=== PATIENT | female | born 1945 | race Caucasian/White ===

== ENCOUNTER → 2017-06-21 | Outpatient (CLI) | payer MEDICARE | END | disposition home or self-care (01) | LOC: RAH 08:07 | PROVIDERS: ATTEND Internal Medicine | DX: Z12.31 Encounter for screening mammogram for malignant neoplasm of breast (principal) | CPT/HCPCS: 77067 ==

== ENCOUNTER → 2017-08-28 | Outpatient (CLI) | payer MEDICARE | LOC: OIH 10:51 | PROVIDERS: ATTEND Internal Medicine | DX: S93.601A Unspecified sprain of right foot, initial encounter (principal) | CPT/HCPCS: 73620 ==

== ENCOUNTER → 2019-03-01 | Outpatient (CLI) | payer MEDICARE | END | disposition home or self-care (01) | LOC: RAH 13:27 | PROVIDERS: ATTEND Orthopaedic Surgery | DX: M71.21 Synovial cyst of popliteal space [Baker], right knee (principal); M22.41 Chondromalacia patellae, right knee | CPT/HCPCS: 73721 ==

== ENCOUNTER → 2019-08-19 | Outpatient (CLI) | payer MEDICARE | END | disposition home or self-care (01) | LOC: RAH 08:06 | PROVIDERS: ATTEND Internal Medicine | DX: Z12.31 Encounter for screening mammogram for malignant neoplasm of breast (principal) | CPT/HCPCS: 77067 ==

== ENCOUNTER → 2020-10-05 | Outpatient (CLI) | payer MEDICARE | END | disposition home or self-care (01) | LOC: RAH 11:34 | PROVIDERS: ATTEND Internal Medicine | DX: Z12.31 Encounter for screening mammogram for malignant neoplasm of breast (principal) | CPT/HCPCS: 77067 ==

== ENCOUNTER → 2021-11-26 | Outpatient (CLI) | payer MEDICARE | END | disposition home or self-care (01) | LOC: RAH 11:49 | PROVIDERS: ATTEND Internal Medicine Hematology & Oncology | DX: C50.312 Malignant neoplasm of lower-inner quadrant of left female breast (principal) | CPT/HCPCS: 77066 ==

== ENCOUNTER → 2022-11-30 | Outpatient (CLI) | payer MEDICARE | END | disposition home or self-care (01) | LOC: RAH 08:26 | PROVIDERS: ATTEND Internal Medicine Hematology & Oncology | DX: C50.312 Malignant neoplasm of lower-inner quadrant of left female breast (principal); R92.2 Inconclusive mammogram; Z85.3 Personal history of malignant neoplasm of breast | CPT/HCPCS: 77066 ==

== ENCOUNTER → 2023-12-13 | Outpatient (CLI) | payer MEDICARE | END | disposition home or self-care (01) | LOC: RAH 09:54 | PROVIDERS: ATTEND Internal Medicine Hematology & Oncology | DX: C50.312 Malignant neoplasm of lower-inner quadrant of left female breast (principal); R92.333 Mammographic heterogeneous density, bilateral breasts | CPT/HCPCS: 77066 ==

== ENCOUNTER → 2024-12-16 | Outpatient (CLI) | payer MEDICARE ==
--- NOTE | 2024-12-24 08:39 | HMCIMG ---
DIGITAL BILATERAL SCREENING MAMMOGRAM Technique: The digital mammographic examination of both breasts in craniocaudal and mediolateral oblique views along with CAD was obtained. History: This is a 79 years year-old female 0, para.0, AB 0. Patient has history of left breast invasive ductal carcinoma in 2020. Patient underwent lumpectomy and axillary lymph node removal followed by chemotherapy and radiation therapy until its June 2021. Patient has mother with family history of breast cancer. Patient has no complaint Reference:Prior mammogram from 12/13/2023, 11/30/2021, 11/26/2021, 10/05/2020, 08/19/2019 and 2018 are available. Breast composition: Breast composition C: The breasts are heterogeneously dense, which may obscure small masses. Finding: The digital mammographic examination of both breasts in craniocaudal and mediolateral oblique view along with CAD demonstrates both breasts to be moderately heterogeneously dense. The left breast is smaller with surgical clips in left breast inferior from prior lumpectomy.. There is no evidence of any dendritic mass, cluster microcalcification or architectural distortion. The Tomosynthesis demonstrates no lesion seen. The retromammary fat appears to be normal. IMPRESSION: Unchanged from prior mammography. NO RADIOGRAPHIC EVIDENCE OF MALIGNANT CHANGES. WE WOULD RECOMMEND ANNUAL FOLLOW UP WITH TOMOSYNTHESIS UNLESS OTHERWISE CLINICALLY INDICATED. FINAL ASSESSMENT: ACR: BI-RAD- 2. Benign: Also a negative assessment; finding(s) benign abnormalities. Management: Routine mammography screening. Likelihood of Cancer: Essentially 0% likelihood of malignancy. NOTE: IF A WORK-UP OF THIS PATIENT LEADS TO A BIOPSY, PLEASE FORWARD A COPY OF THE PATHOLOGY REPORT TO OUR OFFICE REQUIRED BY [employer] E[employer] MARCH 12, 1994. A NEGATIVE MAMMOGRAM SHOULD NOT PRECLUDE BIOPSY OF A CLINICALLY PALPABLE SUSPICIOUS MASS, 10% OF BREAST CANCERS ARE MAMMOGRAPHICALLY OCCULT. THIS MAMMOGRAPHY FACILITY IS FULLY ACCREDITED BY THE FOOD AND [employer]UG [employer]ATION (FDA). THANK YOU FOR THIS REFERRAL.
--- NOTE | 2024-12-25 08:09 | HMCIMG ---
Bilateral BREAST - DIAGNOSTIC ULTRASOUND INDICATION: 79-year-old female with history of left breast lumpectomy 3 years ago patient has a history of breast cancer. COMPARISON: Prior ultrasound from 12/13/2023 is available. TECHNIQUE: A complete breast ultrasound was performed by a mill controller including in the 12 o'clock, 3 o'clock, 6 o'clock and 9 o'clock positions. Images were reviewed by a radiologist. FINDINGS: There is a free fluid collection seen between 7 and 8:00 measuring 0.7 x 0.1 cm suggesting a possible seroma. This was seen on the prior study and appears to be unchanged There is no mass, cyst or other architectural distortion seen in either breast. No abnormality is seen. The left axillary region has no lymph node the right axillary has a small lymph node measuring 2.2 x 0.6 x 1.3 cm. IMPRESSION: Small free fluid seen between 7 and 8:00 of the left breast which is unchanged from prior study. There is no recurrent mass The right breast sonogram appears to be normal. I would recommend bilateral annual mammography with tomography with bilateral breast sonogram CATEGORY 2: BENIGN FINDINGS Recommend monthly self breast exam as well as annual clinical examination. A negative x-ray should not delay biopsy if a dominant or clinically suspicious mass is present, since 8-10% of cancers are not identified by mammography. Dense breasts particularly, may obscure an underlying neoplasm. Some of these may be detected clinically and therefore, clinical examination is an essential part of breast evaluation.
== END | disposition home or self-care (01) ==
LOC: RAH 08:35
PROVIDERS: ATTEND Internal Medicine Hematology & Oncology
DX: C50.312 Malignant neoplasm of lower-inner quadrant of left female breast (principal); R92.333 Mammographic heterogeneous density, bilateral breasts
CPT/HCPCS: 77066